=== PATIENT | male | born 1995 | race Caucasian/White ===

== ENCOUNTER 2025-09-27 13:20 | Outpatient (AMB) | payer MEDICAID, SELFPAY ==
[2025-09-27 13:32] VITALS: BP 143/91; PULSE 92; RESP 18; TEMP 36.1; O2SAT 97; BMI 31.1
--- NOTE | 2025-09-27 13:32 | PD.GSCLVISIT ---
[facility] - [facility] 09/27/25 13:32 Height 1.83 m Height Method Measured Weight 104.128 kg Weight Measurement Method Standing Scale BMI 31.1 BP 143/91 H Blood Pressure Source Automatic Cuff Blood Pressure Location Right Upper Arm Position Sitting Respiration 18 Pulse 92 Pulse Source Monitor Temp 96.9 F Temp Source Temporal Artery Scan Pulse Oximetry (%) 97 Oxygen Delivery Method Room Air Med/Allergies Allergies & Medications Allergies Penicillins Allergy (Verified 09/27/25 13:33) shellfish derived Allergy (Verified 09/27/25 13:33) Medication Reconciliation hydrocortisone 2.5 % topical cream with perineal applicator (Anusol-HC) 1 applic NM QD-BID PRN hemorrhoids #30 grams 09/27/25 [Rx] MA Intake Visit Data Collection New Patient or Established: Established Patient (seen at [facility] within 3 years) Seen by Clinical Staff ONLY (RN/MA): No Reason for Visit:: REFERRAL HEMORRHOIDS Pain Present Currently: Yes Pain scale:: 7 Pain Scale Used: Padilla-Massey/Numerical Mission Commander Required: No PCP or OBGYN visit in last 3 months: Yes Hx Now: No Do You Feel Safe at Home: Yes Authorities Contacted: N/A Smoking Status Smoking Status: Former smoker Tobacco Use: Vapor Cigarette Immunization / Flu Flu Vaccine in the Last 12 Months: Yes Flu Vaccine Exclusion Criteria: Already Received Past Medical History Family History OTHER FAMILY HX: Maternal uncle diagnosed with stage IV colon cancer at age 32 and has since passed. Surgical History SURGICAL: Positive Abdominal Surgery (uncomplicated appendectomy 2001) Social History SOCIAL: History of heroin and fentanyl use, currently on methadone and gradually tapering dose SMOKING STATUS: Smoking status: Former smoker HPI HPI Narrative HISTORY OF PRESENT ILLNESS I, Janine Taylor, have obtained verbal consent from the patient, to be recorded during this encounter which may include, but not limited to, medical history, examination, treatment plans, and relevant health information.? Patient was informed that recording will be read and reviewed by myself before inclusion in the medical chart. The patient is a male who presents for evaluation of hemorrhoids. He has been experiencing hemorrhoids for the past year, which he believes originated from a drug-induced constipation episode at the age of 16. Over the years, his condition has progressively worsened, with no periods of improvement. He recalls an incident where he had to manually extract stool due to severe constipation. His symptoms would exacerbate during periods of fentanyl use. His bowel movements are irregular, often requiring the use of docusate and lactulose to facilitate passage. Without these medications, he may not have a bowel movement for 2 days, leading to nausea and vomiting on the third day. He also reports frequent blood in his stool and difficulty passing stool due to a feeling of prolapse. His diet is low in fiber, consisting mainly of waffles, peanut butter, and processed chicken patties. He has not tried [id number] fiber supplements. He consumes approximately 3 bottles of water daily. He occasionally experiences diarrhea after taking double the recommended lactulose dose. He has never undergone a colonoscopy. He has not tried any treatments for his hemorrhoids, such as creams or sitz baths. He rates his pain as 10/10 during trips to the bathroom. He is currently on methadone and has noticed a slight improvement in his bowel movements with lower doses. ROS Review of Systems Systems Reviewed: All systems reviewed, normal except as documented Constitutional Constitutional: Reports anorexia, Reports fatigue, Reports lethargy and Reports malaise Endocrine Endocrine: Reports fatigue Objective/Exam General Limitations: no limitations General Appearance: alert, well groomed and anxious Head Head exam: atraumatic and normocephalic Eye Eye exam: Present normal appearance Card Cardiovascular exam: Present regular rate, normal rhythm, +S1 and +S2 Abdominal Abdominal exam: Present distention, guarding (all 4 quadrants) and normal bowel sounds Rectal Rectal exam: Present hemorrhoids ((pt showed a picture of large circumferential external hemorrhoids)) Assessment & Plan Diagnosis / Problem List (1) Hemorrhoids that prolapse with straining and require manual replacement back inside anal canal: Status: Acute Assessment & Plan: Experiencing hemorrhoids for the last few years, exacerbated by constipation and straining during bowel movements. Symptoms include pain, nausea, bilious vomiting, and bright red blood during bowel movements. Pain primarily in the lower abdominal region, with a severity rating of 7 out of 10. No significant surgical history except for an appendectomy in 2001. Diet lacks fiber, and drinks about three bottles of water daily. Has not tried ierz-czh-[id number] fiber supplements. Plan Pt reports severe constipation, exacerbated by methadone use. Currently taking docusate and lactulose, sometimes doubling the dose to achieve the desired effect. Increasing water intake to 3 liters per day and incorporating fiber supplements into the diet were advised to help soften stools and improve bowel movements. A colonoscopy is recommended to further investigate the cause of symptoms and check for polyps or other abnormalities. Provided instructions for colonoscopy preparation, including dietary restrictions and the need to prep with gollytely. Procedure will be performed under sedation, and risks and benefits were discussed including perforation requiring emergency surgery, bleeding and the potential of needing to abort prematurely for safety. Increasing water intake to 3 liters per day and incorporating fiber supplements into the diet were advised. A handout detailing these recommendations was provided. Advised to try sitting in warm water and using creams for hemorrhoid relief. Office Procedures GNS Level of Care Nursing/Assessment Patient Status: Established Patient Nursing Assessment/Reassesment: Medication Reconciliation, Update PMH in EMR and Vital Signs Coordination of Care: Complex Care and Chronic Disease 1-5, Education Complex Pt/Fam, Consent,records obtained, informed consent, Results/Orders obtained and Staff clarify orders Established Patient Charge Established Patient Point Assignment: 95 Established Patient Point Charge: EP Level 3 (80-115) Patient Portal Questionaires Social History Tobacco History Smoking Status: Former smoker Domestic Abuse History Do You Feel Safe at Home: Yes Review of Systems Report any current symptoms Only answer those that you have currently: General Complaints anorexia: Yes fatigue: Yes lack of energy: Yes generally not feeling well: Yes Past Medical History Past Medical History Have you ever been diagnosed with any of the following:
== END 2025-09-27 14:35 | disposition home or self-care (01) ==
PROVIDERS: Supervising Provider Surgery; Visit Provider Surgery
DX: K64.4 Residual hemorrhoidal skin tags (principal); K59.00 Constipation, unspecified
CPT/HCPCS: 99213; G0463

== ENCOUNTER 2025-10-19 11:00 | Day surgery (SDC) | payer MEDICAID, SELFPAY ==
[2025-10-18 14:33] VITALS: BMI 30.2
[2025-10-19] VITALS (10 sets, daily range): BP systolic 131–153; BP diastolic 89–99; PULSE 70–78; RESP 14–23; TEMP 36.6–36.7; O2SAT 93–100; BMI 30.9
[2025-10-19] MEDS: MIDAZOLAM INJ 1 MG/ML VIAL 2 ML (ASD USE ONLY) 2 MG IVP (12:47)
[2025-10-19] MEDS: SODIUM CHLORIDE 0.9% 500 ML 500 ML 20 ML IV (12:47)
[2025-10-19] MEDS: fentaNYL CIT INJ 50 mCg/ML AMP 2ML (ASD USE ONLY) IVP (12:48)
== END 2025-10-19 13:33 | disposition home or self-care (01) ==
PROVIDERS: Referring Provider Surgery; Visit Provider Surgery
PROC: 0DBE8ZX Excision of Large Intestine, Via Natural or Artificial Opening Endoscopic, Diagnostic (ICD-10-PCS; CPT 45380; principal; 2025-10-19 13:00)
DX: K64.8 Other hemorrhoids (principal); K59.00 Constipation, unspecified
CPT/HCPCS: 45378; A4649; J1200; J2250; J3010; J7999

== ENCOUNTER 2025-11-08 13:31 | Outpatient (AMB) | payer MEDICAID, SELFPAY ==
--- NOTE | 2025-11-08 14:01 | PD.GSCLVISIT ---
[facility] - [facility] 11/08/25 14:02 Height 1.83 m Height Method Measured Weight 105.035 kg Weight Measurement Method Standing Scale BMI 31.4 BP 134/89 H Blood Pressure Source Automatic Cuff Blood Pressure Location Left Upper Arm Position Sitting Respiration 18 Pulse 86 Pulse Source Monitor Temp 96.0 F L Temp Source Temporal Artery Scan Pulse Oximetry (%) 97 Oxygen Delivery Method Room Air Med/Allergies Allergies & Medications Allergies latex Allergy (Mild, Verified 11/08/25 14:02) swelling to area Penicillins Allergy (Verified 11/08/25 14:02) shellfish derived Allergy (Verified 11/08/25 14:02) Medication Reconciliation methadone 10 mg/5 mL oral solution 110 mg PO QDAY 10/18/25 [History Confirmed 11/08/25] Held on 10/19/25. Instructions: Resume on 10/20/25. MA Intake Visit Data Collection New Patient or Established: Established Patient (seen at [facility] within 3 years) Seen by Clinical Staff ONLY (RN/MA): No Reason for Visit:: COLONOSCOPY F/U Pain Present Currently: No Pain Scale Used: Padilla-Massey/Numerical [employer] Operations Superintendent Required: No PCP or OBGYN visit in last 3 months: Yes Hx Now: No Do You Feel Safe at Home: Yes Authorities Contacted: N/A Smoking Status Smoking Status: Former smoker Immunization / Flu Flu Vaccine in the Last 12 Months: No Flu Vaccine Exclusion Criteria: Refused by Patient Past Medical History Past Medical History NEUROLOGIC: Negative Neurological Disorders or Seizures CARDIAC: Negative Cardiac Disorders or Congestive Heart Failure RESPIRATORY: Negative Chronic Obstructive Pulmonary Disease (COPD) GASTROINTESTINAL: Positive Hemorrhoids GENITOURINARY: Negative Genitourinary Disorders or Renal Disease ENDOCRINE: Negative Endocrine Disorders, Diabetes Mellitus Type 1 or Diabetes Mellitus Type 2 HEMATOLOGIC: Negative Blood Disorders OTHER HISTORY: Positive Chicken Pox; Negative Blood Transfusions, Blood Transfusion Reaction or Anesthesia Reactions Surgical History SURGICAL: Positive Abdominal Surgery Social History SMOKING STATUS: Smoking status: Former smoker ALCOHOL: Alcohol Intake: Never HPI HPI Narrative 30M with history of symptomatic hemorrhoids here for colonoscopy results. Patient reports feeling well overall, his bowel movements are much improved with no more constipation but he is still bothered by his hemorrhoids ROS Review of Systems Systems Reviewed: All systems reviewed, normal except as documented Objective/Exam General General Appearance: alert, cooperative and well groomed Resp Respiratory exam: Absent respiratory distress Results Colonoscopy report reviewed Assessment & Plan Diagnosis / Problem List (1) Hemorrhoids that prolapse with straining and require manual replacement back inside anal canal: Status: Acute Assessment & Plan: 30M with symptomatic hemorrhoids that have persisted despite maximum conservative management. As patient is no longer having constipation, I explained that it is not reasonable to pursue surgery if he chooses. I explained the risks of severe postoperative pain, difficulty urinating potentially requiring a catheter, bleeding, infection, as well as hemorrhoid recurrence. All questions were answered and patient agrees to proceed Office Procedures GNS Level of Care Nursing/Assessment Patient Status: Established Patient Nursing Assessment/Reassesment: Medication Reconciliation, Update PMH in EMR and Vital Signs Coordination of Care: Complex Care and Chronic Disease 1-5, Education Complex Pt/Fam, Consent,records obtained, informed consent, Results/Orders obtained and Staff clarify orders Established Patient Charge Established Patient Point Assignment: 95 Established Patient Point Charge: EP Level 3 (80-115) Patient Portal Questionaires Social History Tobacco History Smoking Status: Former smoker Alcohol History Alcohol Intake: Never Domestic Abuse History Do You Feel Safe at Home: Yes Review of Systems Report any current symptoms Only answer those that you have currently: Past Medical History Past Medical History Have you ever been diagnosed with any of the following: Neurological Problems Seizures: No Cardiology Problems Congestive Heart Failure: No Respiratory Problems Chronic Obstructive Pulmonary Disease (COPD): No Stomache/Intestinal Problems Hemorrhoids: Yes Genital/Urinary Problems Renal Disease: No Endocrine Problems Diabetes Mellitus Type 1: No Diabetes Mellitus Type 2: No Other Problems Blood Transfusions: No Blood Transfusion Reaction: No Anesthesia Reactions: No Chicken Pox: Yes
[2025-11-08 14:02] VITALS: BP 134/89; PULSE 86; RESP 18; TEMP 35.6; O2SAT 97; BMI 31.4
== END 2025-11-08 14:48 | disposition home or self-care (01) ==
LOC: HODSRG 13:31
PROVIDERS: Supervising Provider Surgery; Visit Provider Surgery
DX: K64.2 Third degree hemorrhoids (principal)
CPT/HCPCS: 99213; G0463